=== PATIENT | female | born 1935 | race Caucasian/White ===

== ENCOUNTER 2021-03-16 13:04 | Emergency (ER) | payer MEDICARE, MEDICAID ==
[~2021-03-16] VITALS: Ht 167.6 cm; Wt 81.6 kg
[2021-03-16 13:08] VITALS: BP_SYST 123
[2021-03-16 14:44] VITALS: BP_SYST 123
== END 2021-03-16 14:44 | disposition home or self-care (01) ==
LOC: SED 13:04
DX: S09.90XA Unspecified injury of head, initial encounter (principal); I10 Essential (primary) hypertension; W01.10XA Fall on same level from slipping, tripping and stumbling with subsequent striking against unspecified object, initial encounter; Y93.89 Activity, other specified; Y92.89 Other specified places as the place of occurrence of the external cause; Y99.8 Other external cause status
CPT/HCPCS: 70450-TC; 76376; 99284